=== PATIENT | male | born 1955 | race Hispanic/Latino ===

== ENCOUNTER → 2018-07-20 | Day surgery (SDC) | payer OTHER ==
[2018-07-17 15:56] LABS: BASOPHILS # (AUTO) 0.1 (0.0-0.1); BASOPHILS % 0.8 % (0.0-1.0); EOSINOPHILS # (AUTO) 0.3 (0.0-0.4); EOSINOPHILS % 3.1 % (0.0-6.0); HEMATOCRIT 49.7 % (38.2-49.6); HEMOGLOBIN 17.3 g/dL (14.0-18.0); LYMPHOCYTES # (AUTO) 2.7 (1.0-3.2); LYMPHOCYTES % 27.1 % (18.0-39.1); MEAN CORPUSCULAR HEMOGLOBIN 31.1 pg (28-32); MEAN CORPUSCULAR HGB CONC 34.8 g/dL (31-35); MEAN CORPUSCULAR VOLUME 89.2 fL (81-99); MONOCYTES # (AUTO) 0.7 (0.2-0.8); MONOCYTES % 6.7 % (4.4-11.3); NEUTROPHILS # (AUTO) 6.1 (2.1-6.9); PLATELET COUNT 182 x10e3/uL (140-360); RED BLOOD COUNT 5.57 x10e6/uL (4.3-5.7); RED CELL DISTRIBUTION WIDTH 11.7 % (11.7-14.4)
[2018-07-17 16:13] LABS: ALANINE AMINOTRANSFERASE 22 IU/L (0-55); ALBUMIN 4.1 g/dL (3.5-5.0); ALBUMIN/GLOBULIN RATIO 1.2 (0.8-2.0); ALKALINE PHOSPHATASE 84 IU/L (40-150); BLOOD UREA NITROGEN 17 mg/dL (7-26); BUN/CREATININE RATIO 18 (6-25); CALCIUM 9.6 mg/dL (8.4-10.2); CARBON DIOXIDE 26 mmol/L (22-29); CHLORIDE 101 mmol/L (98-107); CREATININE, SERUM 0.92 mg/dL (0.72-1.25); EST GLOMERULAR FILTRATION RATE > 60 ML/MIN (60-); GLUCOSE 104 mg/dL (74-118); SODIUM 137 mmol/L (136-145)
[~2018-07-20] VITALS: Ht 165.1 cm; Wt 69.4 kg
[2018-07-20] VITALS (15 sets, daily range): BP systolic 120–141; BP diastolic 54–86
[~2018-07-20] MED LIST: ATORVASTATIN CA10 MG PO; FENTANYL CITRATE/PF 100MCG/2 ML INJ ONE; FINASTERIDE5 MG PO; FLUTICASONE PRO16 GM; HEPARIN SOD/SOD CHLORIDE 2,000 ML ONE; IOPAMIDOL 370 MG/ML 200 ML INFUS..BTL INJ ONE; LIDOCAINE 1% W/EPINEPHRINE 20 ML VIAL ONE; LISINOPRIL-HCT1 EACH PO; MIDAZOLAM HCL 2 MG/2 ML VIAL ONE; NITROGLYCERIN/D5W 200 MCG/ML 250 ML ONE; OMEPRAZOLE40 MG PO; PROAIR HFA INH8.5 GM INH; SODIUM CHLORIDE 0.9% 1000ML 1,000 ML ONE; TAMSULOSIN HCL0.4 MG PO; TICAGRELOR 90 MG TABLET ONE; VERAPAMIL HCL 2.5 MG/ML 2 ML VIAL ONE
--- OUTSIDE RECORDS SUMMARY | 2018-07-20 13:46 | XMS REPORT | Continuity of Care Document ---
Author Author [facility] Interface Address Unknown Phone Unavailable Problems Problem Status Onset Date Classification Date Reported Comments Source R10.84 - GENERALIZED ABDOMINAL PAIN Active 12/20/2016 [facility] DX: H90.42=SENSORINEURAL HEARING LOSS, U Active 11/26/2016 [facility] UNK Active 08/23/2016 [facility] Discharge Diagnosis: Abdominal pain 02/12/2016 02/15/2016 [facility] LOWER ABDOMINAL PAIN Active 02/11/2016 [facility] Acid reflux Active Problem 02/13/2017 [facility] [place] HTN (<span [id number]">Confirmed</span>) Active Problem 02/13/2017 [facility] [place] Acute pain of right shoulder Active Problem 05/29/2018 [facility] Primary Acute non-recurrent frontal sinusitis Active Problem 05/29/2018 [facility] Cough Active Problem 05/29/2018 [facility] Primary Left ear pain Active Problem 05/29/2018 [facility] Primary Wears hearing aid Active Problem 05/29/2018 [facility] Primary Generalized abdominal pain Active Problem 05/29/2018 [facility] Primary Pain in left shoulder Active Problem 05/29/2018 [facility] Primary Environmental allergies Active Diagnosis 05/29/2018 [facility] Primary Onychomycosis Active Problem 05/29/2018 [facility] Primary Other chronic pain Active Problem 05/29/2018 [facility] Primary GERD Active Problem 05/29/2018 [facility] Primary Enlarged prostate with lower urinary tract symptoms Active Problem 05/29/2018 [facility] Primary Tobacco use disorder Active Problem 05/29/2018 [facility] Primary Abdominal pain Active Problem 05/29/2018 [facility] Primary Low vitamin D level Active Problem 05/29/2018 [facility] Primary Hematuria Active Problem 05/29/2018 [facility] Primary Hypertension Active Problem 05/29/2018 [facility] Primary Memory loss Active Problem 05/29/2018 [facility] Primary Hypokalemia Active Problem 05/29/2018 [facility] Primary Umbilical hernia without obstruction and without gangrene Active Problem 05/29/2018 [facility] Primary Fatty liver Active Problem 05/29/2018 [facility] Primary Calculus of left kidney Active Problem 05/29/2018 [facility] Primary Atherosclerosis Active Problem 05/29/2018 [facility] Primary Degenerative joint disease of low back Active Problem 05/29/2018 [facility] Primary Tobacco use disorder Active Problem 05/29/2018 [facility] Primary Left leg pain Active Problem 05/29/2018 [facility] Primary localized osteoarthrosis of right hip Active Problem 05/29/2018 [facility] Primary Prepatellar bursitis of right knee Active Problem 05/29/2018 [facility] Primary Elbow pain, left Active Problem 05/29/2018 [facility] Primary Shortness of breath Active Problem 05/29/2018 [facility] Primary Right elbow pain Active Problem 05/29/2018 [facility] Primary Essential hypertension Active Problem 05/29/2018 [facility] Primary Elbow pain, right Active Problem 05/29/2018 [facility] Primary M25.511 Active [facility] Medications Medication Details Route Status Patient Instructions Ordering Provider Order Date Source Naproxen 1 tablet with food or milk as needed Orally Active 500 mg Orally every 12 hrs as needed Jarad 05/28/2018 [facility] Fluticasone Propionate 1 spray in each nostril Nasally Active 50 MCG/ACT Nasally Once a day Jarad 04/30/2018 [facility] Naproxen 1 tablet with food or milk as needed Orally Active 500 mg Orally every 12 hrs Jarad 04/30/2018 [facility] ProAir HFA 2 puffs as needed Inhalation Active 108 (90 Base) MCG/ACT Inhalation every 6 hrs as needed Jarad 04/30/2018 [facility] Levocetirizine Dihydrochloride 1 tablet in the evening Orally Active 5 MG Orally Once a day Jarad 04/30/2018 [facility] Diclofenac Sodium 1 application to affected area Transdermal Active 3 % Transdermal Twice a day Jarad 04/30/2018 [facility] Bromfed DM 10 ml as needed Orally Active 30-2-10 MG/5ML Orally every 6 hrs as needed Jarad 04/30/2018 [facility] Meloxicam 1 tablet Orally Active 15 MG Orally Once a day Jarad 01/29/2018 [facility] Tamsulosin HCl 1 capsule Orally Active 0.4 MG Orally daily Jarad 10/13/2017 [facility] Finasteride 1 tablet Orally Active 5 MG Orally Once a day Jarad 10/13/2017 [facility] Meloxicam 1 tablet Orally Active 15 MG Orally Once a day Jarad 06/15/2017 [facility] Robaxin 1 tablet Orally Active 500 mg Orally three times a day (tid) as needed (prn) 05/16/2017 [facility] Ergocalciferol 1 capsule Orally Active 92517 UNIT Orally once a week 04/17/2017 [facility] Klor-Con 10 1 tablet with food Orally Active 10 MEQ Orally daily 01/15/2017 [facility] Atorvastatin Calcium 1 tablet Orally Active 10 MG Orally Once a day 01/13/2017 [facility] Ergocalciferol 1 capsule Orally Active 96449 UNIT Orally once a week 12/18/2016 [facility] Klor-Con M20 1 tablet with food Orally Active 20 MEQ Orally Once a day 12/18/2016 [facility] Amlodipine Besylate 1 tablet Orally Active 5 MG Orally Once a day 11/12/2016 [facility] Ciclopirox 1 drop to affected area Externally Active 8 % Externally Once a day 10/16/2016 [facility] Oxycodone Hydrochloride 5 MG Oral Tablet 10 mg, Route: PO, ONCE, Dosing Weight 65.085, kg, Start date: 09/16/16 9:45:00 [employer], Stop date: 09/16/16 9:45:00 [employer] Inactive 09/16/2016 [facility] Naloxone 0.4 mg, Route: IVP, Q2MIN, Dosing Weight 65.085, kg, PRN Narcotic Reversal, Start date: 09/16/16 8:50:00 [employer], Duration: 8 doses or times, Stop date: Limited # of times Inactive 09/16/2016 [facility] Diphenhydramine 12.5 mg, Route: IVP, Drug form: INJ, Q6H, Dosing Weight 65.085, kg, PRN Itching, Start date: 09/16/16 8:50:00 [employer], Duration: 30 day, Stop date: 10/16/16 8:49:00 CDT Inactive 09/16/2016 [facility] Albuterol 0.83 MG/ML Inhalant Solution 2.49 mg, Route: NEB, Q20Min, Dosing Weight 65.085, kg, PRN Wheezing, Priority: STAT, Start date: 09/16/16 8:50:00 [employer], Duration: 30 day, Stop date: 10/16/16 9:49:00 CDT Inactive 09/16/2016 [facility] Meperidine 12.5 mg, Route: IVP, Q30Min, Dosing Weight 65.085, kg, PRN Other -See Comment, For shivering, Start date: 09/16/16 8:50:00 [employer], Duration: 2 doses or times, Stop date: Limited # of times Inactive 09/16/2016 [facility] Hydromorphone 0.5 mg, Route: IVP, Q5Min, Dosing Weight 65.085, kg, PRN Pain Score 7-10, Start date: 09/16/16 8:50:00 [employer], Duration: 4 doses or times, Stop date: Limited # of times Inactive 09/16/2016 [facility] Flumazenil 0.2 mg, Route: IVP, PRN, Dosing Weight 65.085, kg, PRN Benzodiazepine Reversal, Initial dose, Start date: 09/16/16 8:50:00 [employer], Duration: 30 day, Stop date: 10/16/16 9:49:00 CDT Inactive 09/16/2016 [facility] Promethazine 6.25 mg, Route: IVPB, ONCE, Dosing Weight 65.085, kg, PRN Nausea & Vomiting, Start date: 09/16/16 8:50:00 [employer] Inactive 09/16/2016 [facility] Ondansetron 4 mg, Route: IVP, ONCE, Dosing Weight 65.085, kg, PRN Nausea & Vomiting, Start date: 09/16/16 8:50:00 [employer] Inactive 09/16/2016 [facility] Acetaminophen 1,000 mg, Route: IVPB, Drug form: INJ, ONCE, Dosing Weight 65.085, kg, PRN Pain Score 1-3, Start date: 09/16/16 8:50:00 [employer], Duration: 1 doses or times, Stop date: Limited # of times Inactive 09/16/2016 [facility] Labetalol 10 mg, Route: IVP, Q5Min, Dosing Weight 65.085, kg, PRN Elevated BP, Start date: 09/16/16 8:50:00 [employer], Duration: 5 doses or times, Stop date: Limited # of times Inactive 09/16/2016 [facility] Oxycodone 5 mg, Route: PO, Drug form: TAB, Q4H, Dosing Weight 65.085, kg, PRN Pain Score 4-6, Start date: 09/16/16 8:50:00 [employer], Duration: 30 day, Stop date: 10/16/16 8:49:00 CDT Inactive 09/16/2016 [facility] Sodium Chloride 0.154 MEQ/ML Injectable Solution 500 mL, Rate: 25 ml/hr, Infuse over: 20 hr, Route: IV, Dosing Weight 65.085 kg, Total Volume: 500, Start date: 09/16/16 8:50:00 [employer], Duration: 30 day, Stop date: 10/16/16 8:49:00 CDT Inactive 09/16/2016 [facility] Calcium Chloride 0.0014 MEQ/ML / Potassium Chloride 0.004 MEQ/ML / Sodium Chloride 0.103 MEQ/ML / Sodium Lactate 0.028 MEQ/ML Injectable Solution 1,000 mL, Rate: 125 ml/hr, Infuse over: 8 hr, Route: IV, Dosing Weight 65.085 kg, Total Volume: 1,000, Start date: 09/16/16 8:50:00 [employer], Duration: 30 day, Stop date: 10/16/16 8:49:00 CDT Inactive 09/16/2016 [facility] Hydralazine 10 mg, Route: IVP, Q20Min, Dosing Weight 65.085, kg, PRN Elevated BP, Start date: 09/16/16 8:50:00 [employer], Duration: 2 doses or times, Stop date: Limited # of times Inactive 09/16/2016 [facility] esmolol 10 mg, Route: IVP, Q5Min, Dosing Weight 65.085, kg, PRN Other -See Comment, Start date: 09/16/16 8:50:00 [employer], Duration: 5 doses or times, Stop date: Limited # of times Inactive 09/16/2016 [facility] neostigmine (ANES) Route: IV, Drug form: INJ, ONCE, Stop date: 09/16/16 8:47:00 [employer] Inactive 09/16/2016 [facility] glycopyrrolate (ANES) Route: IV, Drug form: INJ, ONCE, Stop date: 09/16/16 8:47:00 [employer] Inactive 09/16/2016 [facility] Docusate Sodium 100 MG Oral Capsule [Colace] 100 mg=1 cap, PO, BID, PRN Constipation, # 20 cap, 0 Refill(s), Pharmacy: [facility]/pharmacy #6000 Active 09/16/2016 [facility] Acetaminophen 300 MG / Codeine Phosphate 30 MG Oral Tablet [Tylenol with Codeine #3] 1 tab, PO, Q6H, PRN pain, X 7 day, # 28 tab, 0 Refill(s) Active 09/16/2016 [facility] ropivacaine Dosing: Per Nerve Block Dosing Order, Route: NERVE BLOCK, Start date: 09/16/16 8:34:00 [employer] 400 mL, Dosing Weight 65.085, kg, Duration: 30 day, Stop date: 10/16/16 9:33:00 CDT Inactive 09/16/2016 [facility] dexamethasone (ANES) Route: IV, Drug form: INJ, ONCE, Stop date: 09/16/16 8:31:00 [employer] Inactive 09/16/2016 [facility] ondansetron (ANES) Route: IV, Drug form: INJ, ONCE, Stop date: 09/16/16 8:31:00 [employer] Inactive 09/16/2016 [facility] succinylcholine (ANES) Route: IV, Drug form: INJ, ONCE, Stop date: 09/16/16 8:26:00 [employer] MANAGER Inactive 09/16/2016 [facility] propofol (ANES) Route: IV, Drug form: INJ, ONCE, Stop date: 09/16/16 8:26:00 [employer]NAGER Inactive 09/16/2016 [facility] fentaNYL (ANES) Route: IV, Drug form: INJ, ONCE, Stop date: 09/16/16 8:26:00 [employer] MA[employer]GER Inactive 09/16/2016 [facility] lidocaine (ANES) Route: IV, Drug form: INJ, ONCE, Stop date: 09/16/16 8:26:00 [employer]GER Inactive 09/16/2016 [facility] midazolam (ANES) Route: IV, Drug form: SOLN, ONCE, Stop date: 09/16/16 8:26:00 [employer]GER Inactive 09/16/2016 [facility] acetaminophen (ANES) Route: IV, Drug form: INJ, ONCE, Stop date: 09/16/16 8:26:00 [employer] MANAGER Inactive 09/16/2016 [facility] ceFAZolin (ANES) Route: IV, Drug form: INJ, ONCE, Stop date: 09/16/16 8:26:00 [employer] MANAGER Inactive 09/16/2016 [facility] rocuronium (ANES) Route: IV, Drug form: INJ, ONCE, Stop date: 09/16/16 8:21:00 [employer] MANAGER Inactive 09/16/2016 [facility] LR 1000 mL INJ (ANES) Route: IV, Total Volume: 1,000, Start date: 09/16/16 7:50:00 [employer] MANAGER, Stop date: 09/16/16 8:50:00 [employer]AL [employer] MANAGER Inactive 09/16/2016 [facility] Albuterol 0.833 MG/ML / Ipratropium [place] 0.167 MG/ML Inhalant Solution 3 mL, Route: NEB, Dosing Weight 65.085, kg, ONCE, STAT, Start date: 09/16/16 7:11:00 [employer] MANAGER, Stop date: 09/16/16 7:11:00 [employer]AL [employer] MANAGER Inactive 09/16/2016 [facility] Calcium Chloride 0.0014 MEQ/ML / Potassium Chloride 0.004 MEQ/ML / Sodium Chloride 0.103 MEQ/ML / Sodium Lactate 0.028 MEQ/ML Injectable Solution 1,000 mL, Rate: 25 ml/hr, Infuse over: 40 hr, Route: IV, Dosing Weight 65.085 kg, Total Volume: 1,000, Start date: 09/16/16 7:11:00 [employer] MA[employer]GER, Duration: 30 day, Stop date: 10/16/16 7:10:00 CDT Inactive 09/16/2016 [facility] Sodium Chloride 0.154 MEQ/ML Injectable Solution 500 mL, Rate: 25 ml/hr, Infuse over: 20 hr, Route: IV, Dosing Weight 65.085 kg, Total Volume: 500, Start date: 09/16/16 7:11:00 [employer]NAGER, Duration: 30 day, Stop date: 10/16/16 7:10:00 CDT Inactive 09/16/2016 [facility] Bupropion 150 mg, PO, Daily, 0 Refill(s) Active 09/12/2016 [facility] Meloxicam 1 tablet Orally Active 15 MG Orally Once a day Jarad09/12/2016 [facility] Diclofenac Sodium as directed Transdermal Active 1 % Transdermal Twice a day 09/12/2016 [facility] Levocetirizine Dihydrochloride 1 tablet in the evening Orally Active 5 MG Orally Once a day 09/12/2016 [facility] Ergocalciferol 1 capsule Orally Active 80576 UNIT Orally Once a week [facility] 05/23/2016 [facility] Amoxicillin-Pot Clavulanate as directed Orally Active 500-125 MG Orally every 12 hrs [facility] 05/22/2016 [facility] Benzonatate 1 capsule as needed Orally Active 100 MG Orally Three times a day as needed [facility] 05/22/2016 [facility] Levocetirizine Dihydrochloride 1 tablet in the evening Orally Active 5 MG Orally Once a day [facility] 05/22/2016 [facility] Fluticasone Propionate 1 spray in each nostril Nasally Active 50 MCG/ACT Nasally Once a day [facility] 05/22/2016 [facility] BuPROPion HCl (SR) 1 tablet Orally Active 150 MG Orally Twice a day [facility] 03/19/2016 [facility] Potassium Chloride 1 tablet with food Orally Active 10 MEQ Orally Twice a day [facility] 03/01/2016 [facility] Ergocalciferol 1 capsule Orally Active 79165 UNIT Orally Once a week [facility] 03/01/2016 [facility] tramadol hydrochloride 50 MG Oral Tablet [Ultram] 50 mg=1 tab, PO, Q6H, PRN pain, X 3 day, # 12 tab, 0 Refill(s) Active 02/12/2016 [facility] Saline Flush 0.9% 10 mL, Route: IVP, Drug Form: INJ, kg, PRN, PRN Line Flush, Start date: 02/11/16 21:54:00 CDT, Duration: 30 day, Stop date: 03/12/16 21:53:00 CDTNotes: (Same as: Posiflush) No Longer Active 02/12/2016 [facility] Tamsulosin HCl 1 capsule Orally Active 0.4 MG Orally daily [facility] Meloxicam 1 tablet Orally Active 15 MG Orally Once a day [facility] Omeprazole 1 capsule Orally Active 20 MG Orally daily [facility] Lisinopril-Hydrochlorothiazide 2 tablet Orally Active 20-12.5 MG Orally Once a day [facility] Amlodipine Besylate 1 tablet Orally Active 10 MG Orally Once a day [facility] Fluticasone Propionate 1 spray in each nostril Nasally Active 50 MCG/ACT Nasally Once a day [facility] Levocetirizine Dihydrochloride 1 tablet in the evening Orally Active 5 MG Orally Once a day [facility] BuPROPion HCl (SR) 1 tablet Orally Active 150 MG Orally Twice a day [facility] Robaxin 1 tablet Orally Active 500 MG Orally as needed (prn) [facility] Finasteride 1 tablet Orally Active 5 MG Orally Once a day [facility] Ranitidine 1 tablet Oral Active 75 mg Oral twice a day (bid) [facility] Ciclopirox 1 drop to affected area Externally Active 8 % Externally Once a day [facility] Ergocalciferol 1 capsule Orally Active 92750 UNIT Orally Once a week [facility] Lisinopril-Hydrochlorothiazide 2 tablet Orally Active 20-12.5 MG Orally Once a day [facility] Klor-Con 10 1 tablet with food Orally Active 10 MEQ Orally daily [facility] Levocetirizine Dihydrochloride 1 tablet in the evening Orally Active 5 MG Orally Once a day [facility] Ciclopirox 1 drop to affected area Externally Active 8 % Externally Once a day [facility] Fluticasone Propionate 1 spray in each nostril Nasally Active 50 MCG/ACT Nasally Once a day [facility] Ranitidine 1 tablet Oral Active 75 mg Oral twice a day (bid) [facility] BuPROPion HCl (SR) 1 tablet Orally Active 150 MG Orally Twice a day [facility] BuPROPion HCl (SR) TAKE 1 TABLET BY MOUTH TWICE A DAY NA Active 150 MG [facility] Omeprazole 1 capsule Orally Active 20 MG Orally daily [facility] Amlodipine Besylate 1 tablet Orally Active 10 MG Orally Once a day [facility] Atorvastatin Calcium 1 tablet Orally Active 10 MG Orally Once a day [facility] Fluticasone Propionate 1 spray in each nostril Nasally Active 50 MCG/ACT Nasally Once a day [facility] Amlodipine Besylate TAKE 1 TABLET BY MOUTH ONCE A DAY NA Active 10 mg [facility] Finasteride 1 tablet Orally Active 5 MG Orally daily [facility] Levocetirizine Dihydrochloride 1 tablet in the evening Orally Active 5 MG Orally Once a day [facility] Tamsulosin HCl 1 capsule Orally Active 0.4 MG Orally daily [facility] Allergies, Adverse Reactions, Alerts Substance Category Reaction Severity Reaction type Status Date Reported Comments Source N.K.D.A. Adverse Reaction Info Not Available Adverse Reaction Active 05/28/2018 [facility] Primary Immunizations Immunization Date Given Site Status Last Updated Comments Source Results Order Name Results Value Reference Range Date Interpretation Comments Source Internal Auditory Canal w contrast CT Internal Auditory Canal w contrast CT CT temporal bones with intravenous contrast 02/10/2017 10:41 AM CDT Clinical: Bilateral hearing loss, ear pain. Comparison: No prior exam. Technique: Axial images were obtained. Sagittal and coronal MPR images are also submitted. The DLP is 330 mGy*cm. This exam was performed according to our department dose optimization protocol, which includes automated exposure control, adjustment of the mA and/or kV according to patient size and/or use of iterative reconstruction technique. 75 mL of Omnipaque 300 given intravenously. Findings: Right temporal bone: Well aerated right mastoid air cells. Small volume of debris is present within the right external auditory canal. Mild medial retraction of the right tympanic membrane is present. The right middle ear cavity is well aerated. The right ossicular chain appears unremarkable. The right otic labyrinth appears unremarkable. No dehiscence of the right superior semicircular canal is seen. The right internal auditory canal and carotid canal appear unremarkable. Left temporal bone: Left mastoidectomy is present. No significant residual fluid is seen within the mastoid operative bed. The left tympanic membrane is retracted medially. Small left ossicular chain is present. Small volume of soft tissue is seen within the left epitympanum. The left cochlea and otic labyrinth appear unremarkable. 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 The left internal auditory canal and carotid canal appear intact. Left pterional craniotomy is present. Left globe anterior chamber foreign body is noted. Impression: 1. Right external auditory canal small volume debris material. Nonspecific mild retraction of the right tympanic membrane. 2. Left mastoidectomy. Small volume left epitympanic soft tissue. 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 3. Left anterior globe surgical foreign body. Please see additional comments above. 02/10/2017 - - Read by: Mac Arevalo MD Dictated Date/time: 02/10/17 16:09 Electronically Signed by: Mac Arevalo MD 02/10/17 16:25 FINAL REPORT YUM[facility] Abdomen/Pelvis w/wo IV contrast CT Abdomen/Pelvis w/wo IV contrast CT Patient Name: MINNIE LUCIO : 1955; Age: 61 years y/o Male MR: [id number] * I. COMPUTED TOMOGRAPHY SCAN OF THE ABDOMEN with and without contrast. * II. COMPUTED TOMOGRAPHY SCAN OF THE PELVIS with and without contrast HISTORY: Utilized nonspecific abdominal pain. COMPARISON: 02/12/2016. * TECHNIQUE: I. COMPUTED TOMOGRAPHY SCAN OF THE ABDOMEN with and without contrast: Helical CT images were obtained on a multidetector computed tomography from the domes the diaphragms to the iliac crests prior to and following the intravenous administration of nonionic iodinated contrast. Oral contrast was also provided. II. COMPUTED TOMOGRAPHY SCAN OF THE PELVIS with and without contrast: Helical CT images were obtained on a multidetector computed tomography from the iliac crests to the pubic symphysis prior to and following the intravenous administration of nonionic iodinated contrast. Oral contrast was also provided. Coronal and sagittal reconstructions were obtained. CT radiation dose DLP: 816 mGy-cm FINDINGS: There is no evidence of an acute intra-abdominal process. There is no free intraperitoneal gas, intra-abdominal abscess, focal inflammation, or bowel obstruction. There are postcholecystectomy changes. Surgical clips are noted in the right upper quadrant. There are mild diffuse fatty change involving the liver. The liver is otherwise unremarkable. No focal lesions are seen. The spleen, pancreas, and adrenal glands are normal in appearance. The kidneys are normal in size and show good, symmetrical excretion without hydronephrosis. There is a 3 mm left upper pole renal calculus which is stable. No other urinary tract calculi are seen. There are a few renal cysts bilaterally. The largest cyst measures 12 mm in the left mid polar region. There is also an 8 mm cyst in the upper pole. A few other tiny cysts are noted bilaterally. No other focal renal lesions are seen. The gastrointestinal structures are unremarkable. There is no evidence of obstruction or ileus. A normal appendix is visualized. There is no evidence of appendicitis. No mass or adenopathy is seen within the abdomen or pelvis. There is no ascites or other fluid collection. There are extensive atherosclerotic calcifications involving the abdominal aorta. The aorta is normal in caliber. The visualized lung bases are clear. There are no pleural effusions. The heart is normal in size. There is no pericardial effusion. There are very mild right coronary artery calcifications. There is mild degenerative disc disease at L5-S1. The osseous structures are otherwise unremarkable. No blastic or destructive lesions are seen. IMPRESSION: 1. No evidence of an acute or significant focal intra-abdominal process. 2. Status post cholecystectomy. 3. Mild diffuse fatty changes involving the liver. 4. Tiny left upper pole renal calculus. Also noted are a few small/tiny renal cysts. 5. Atherosclerosis. 6. Mild degenerative disc disease at L5-S1. SL: [id number] 12/27/2016 - - Read by: Geremias De Oliveira MD Dictated Date/time: 12/27/16 16:38 Electronically Signed by: Geremias De Oliveira MD 12/27/16 16:46 FINAL REPORT [facility] CHEM PANEL B/C Ratio 17 6 - 25 09/12/2016 [facility] CHEM PANEL A/G Ratio 1.1 0.7 - 1.6 09/12/2016 [facility] CHEM PANEL Globulin 3.2 g/dL 2.7 - 4.2 09/12/2016 [facility] CHEM PANEL AGAP 11.2 meq/L 10.0 - 20.0 09/12/2016 [facility] CHEM PANEL eGFR 98 mL/min/1.73m2 09/12/2016 Result Comment: The eGFR is calculated using the CKD-EPI formula. In most young, healthy individuals the eGFR will be >90 mL/min/1.73m2. The eGFR declines with age. An eGFR of 60-89 may be normal in some populations, particularly the elderly, for whom the CKD-EPI formula has not been extensively validated. Use of the eGFR is not recommended in the following populations: Individuals with unstable creatinine concentrations, including patients and those with serious co-morbid conditions. Patients with extremes in muscle mass or diet. The data above are obtained from the National Kidney Disease Education Program (NKDEP) which additionally recommends that when the eGFR is used in patients with extremes of body mass index for purposes of drug dosing, the eGFR should be multiplied by the estimated BMI. [facility] CHEM PANEL AST 16 unit/L 0 - 37 09/12/2016 [facility] CHEM PANEL Bili Total 0.4 mg/dL 0.2 - 1.3 09/12/2016 [facility] CHEM PANEL Alk Phos 99 unit/L 39 - 136 09/12/2016 [facility] CHEM PANEL ALT 26 unit/L 0 - 65 09/12/2016 [facility] CHEM PANEL Albumin Lvl 3.6 g/dL 3.5 - 5.0 09/12/2016 [facility] CHEM PANEL Total Protein 6.8 g/dL 6.4 - 8.4 09/12/2016 [facility] CHEM PANEL Calcium Lvl 8.5 mg/dL 8.5 - 10.5 09/12/2016 [facility] CHEM PANEL CO2 28 meq/L 24 - 32 09/12/2016 [facility] CHEM PANEL Chloride Lvl 104 meq/L 95 - 109 09/12/2016 [facility] CHEM PANEL Potassium Lvl 3.2 meq/L 3.5 - 5.1 09/12/2016 [facility] CHEM PANEL Sodium Lvl 140 meq/L 135 - 145 09/12/2016 [facility] CHEM PANEL Creatinine Lvl 0.78 mg/dL 0.50 - 1.40 09/12/2016 [facility] CHEM PANEL BUN 13 mg/dL 7 - 22 09/12/2016 [facility] CHEM PANEL Glucose Lvl 92 mg/dL 70 - 99 09/12/2016 [facility] HEMATOLOGY Platelet 194 K/CMM 133 - 450 09/12/2016 [facility] HEMATOLOGY MCV 88.9 fL 80.0 - 94.0 09/12/2016 [facility] HEMATOLOGY MCH 31.3 pg 27.0 - 31.0 09/12/2016 [facility] HEMATOLOGY MPV 8.3 fL 7.4 - 10.4 09/12/2016 [facility] HEMATOLOGY WBC 9.0 K/CMM 3.7 - 10.4 09/12/2016 [facility] HEMATOLOGY RBC 5.13 M/CMM 4.70 - 6.10 09/12/2016 [facility] HEMATOLOGY Hgb 16.1 g/dL 14.0 - 18.0 09/12/2016 [facility] HEMATOLOGY Hct 45.6 % 42.0 - 54.0 09/12/2016 [facility] HEMATOLOGY MCHC 35.2 g/dL 32.0 - 36.0 09/12/2016 [facility] HEMATOLOGY RDW 13.3 % 11.5 - 14.5 09/12/2016 [facility] HEMATOLOGY Segs 58.3 % 45.0 - 75.0 09/12/2016 [facility] HEMATOLOGY Lymphocytes 29.6 % 20.0 - 40.0 09/12/2016 [facility] HEMATOLOGY Monocytes 9.1 % 2.0 - 12.0 09/12/2016 [facility] HEMATOLOGY Eosinophils 2.4 % 0.0 - 4.0 09/12/2016 [facility] Eosinophils # 0.2 K/CMM 0.0 - 0.5 09/12/2016 [facility] Basophils 0.6 % 0.0 - 1.0 09/12/2016 [facility] Segs-Bands # 5.2 K/CMM 1.5 - 8.1 09/12/2016 [facility] Lymphocytes # 2.7 K/CMM 1.0 - 5.5 09/12/2016 [facility] Monocytes # 0.8 K/CMM 0.0 - 0.8 09/12/2016 [facility] Basophils # 0.1 K/CMM 0.0 - 0.2 09/12/2016 [facility] Scapula 2 views DX Scapula 2 views DX Right scapula 2 views: There is no evidence of fracture or dislocation. There are no other significant osseous, articular or soft tissue abnormalities. IMPRESSION: No significant radiographic abnormalities of the right scapula. [id number] 05/22/2016 - - Read by: Leif Snow MD Dictated Date/time: 05/22/16 13:53 Electronically Signed by: Leif Snow MD 05/22/16 13:54 FINAL REPORT [facility] Shoulder series DX Shoulder series DX Right shoulder 3 views: There is no fracture or dislocation. There are no other significant osseous, articular or soft tissue abnormalities. IMPRESSION: No acute radiographic abnormality of the right shoulder. [id number] 05/22/2016 - - Read by: Leif Snow MD Dictated Date/time: 05/22/16 13:24 Electronically Signed by: Leif Snow MD 05/22/16 13:24 FINAL REPORT [facility] CHEM PANEL eGFR 81 mL/min/1.73m2 02/12/2016 Result Comment: The eGFR is calculated using the CKD-EPI formula. In most young, healthy individuals the eGFR will be >90 mL/min/1.73m2. The eGFR declines with age. An eGFR of 60-89 may be normal in some populations, particularly the elderly, for whom the CKD-EPI formula has not been extensively validated. Use of the eGFR is not recommended in the following populations: Individuals with unstable creatinine concentrations, including patients and those with serious co-morbid conditions. Patients with extremes in muscle mass or diet. The data above are obtained from the National Kidney Disease Education Program (NKDEP) which additionally recommends that when the eGFR is used in patients with extremes of body mass index for purposes of drug dosing, the eGFR should be multiplied by the estimated BMI. [facility] CHEM PANEL Alk Phos 88 unit/L 39 - 136 02/12/2016 [facility] CHEM PANEL Bili Total 0.7 mg/dL 0.2 - 1.3 02/12/2016 [facility] CHEM PANEL AST 17 unit/L 0 - 37 02/12/2016 [facility] CHEM PANEL Albumin Lvl 3.9 g/dL 3.5 - 5.0 02/12/2016 [facility] CHEM PANEL ALT 22 unit/L 0 - 65 02/12/2016 [facility] CHEM PANEL Sodium Lvl 140 meq/L 135 - 145 02/12/2016 [facility] CHEM PANEL Glucose Lvl 112 mg/dL 70 - 99 02/12/2016 [facility] CHEM PANEL Calcium Lvl 8.7 mg/dL 8.5 - 10.5 02/12/2016 [facility] CHEM PANEL CO2 27 meq/L 24 - 32 02/12/2016 [facility] CHEM PANEL Total Protein 7.8 g/dL 6.4 - 8.4 02/12/2016 [facility] CHEM PANEL Chloride Lvl 108 meq/L 95 - 109 02/12/2016 [facility] CHEM PANEL Potassium Lvl 3.7 meq/L 3.5 - 5.1 02/12/2016 [facility] CHEM PANEL Creatinine Lvl 1.01 mg/dL 0.50 - 1.40 02/12/2016 [facility] CHEM PANEL BUN 24 mg/dL 7 - 22 02/12/2016 [facility] CHEM PANEL A/G Ratio 1.0 0.7 - 1.6 02/12/2016 [facility] CHEM PANEL Globulin 3.9 g/dL 2.0 - 4.0 02/12/2016 [facility] CHEM PANEL AGAP 8.7 meq/L 10.0 - 20.0 02/12/2016 [facility] CHEM PANEL B/C Ratio 24 6 - 25 02/12/2016 [facility] HEMATOLOGY Basophils # 0.1 K/CMM 0.0 - 0.2 02/12/2016 [facility] HEMATOLOGY Eosinophils # 0.3 K/CMM 0.0 - 0.5 02/12/2016 [facility] HEMATOLOGY Monocytes # 0.9 K/CMM 0.0 - 0.8 02/12/2016 [facility] HEMATOLOGY Segs-Bands # 7.1 K/CMM 1.5 - 8.1 02/12/2016 [facility] HEMATOLOGY Lymphocytes # 2.9 K/CMM 1.0 - 5.5 02/12/2016 [facility] HEMATOLOGY Basophils 0.9 % 0.0 - 1.0 02/12/2016 [facility] HEMATOLOGY Segs 62.7 % 45.0 - 75.0 02/12/2016 [facility] HEMATOLOGY Eosinophils 2.7 % 0.0 - 4.0 02/12/2016 [facility] HEMATOLOGY Monocytes 7.9 % 2.0 - 12.0 02/12/2016 [facility] HEMATOLOGY Lymphocytes 25.8 % 20.0 - 40.0 02/12/2016 [facility] WBC 11.3 K/CMM 3.7 - 10.4 02/12/2016 [facility] RBC 5.71 M/CMM 4.70 - 6.10 02/12/2016 [facility] Hgb 17.4 g/dL 14.0 - 18.0 02/12/2016 [facility] Platelet 201 K/CMM 133 - 450 02/12/2016 [facility] MPV 8.3 fL 7.4 - 10.4 02/12/2016 [facility] MCV 89.6 fL 80.0 - 94.0 02/12/2016 [facility] Hct 51.1 % 42.0 - 54.0 02/12/2016 [facility] MCH 30.5 pg 27.0 - 31.0 02/12/2016 [facility] RDW 13.0 % 11.5 - 14.5 02/12/2016 [facility] MCHC 34.1 g/dL 32.0 - 36.0 02/12/2016 [facility] URINE AND STOOL UA Color Eli 02/12/2016 [facility] URINE AND STOOL UA RBC 21 /HPF 0 - 2 02/12/2016 [facility] URINE AND STOOL UA Mucus Many /LPF None Seen /LPF 02/12/2016 [facility] URINE AND STOOL UA CaOx Freda Occasional /HPF None Seen /HPF 02/12/2016 [facility] URINE AND STOOL UA Urobilinogen 2.0 mg/dL 0.1 - 1.0 02/12/2016 [facility] URINE AND STOOL UA Nitrite Negative (02/11/16 11:32 PM) Negative 02/12/2016 [facility] URINE AND STOOL UA Leuk Est Small *ABN* (02/11/16 11:32 PM) Negative 02/12/2016 [facility] URINE AND STOOL UA Sq Epi Occasional /LPF Few /LPF 02/12/2016 [facility] URINE AND STOOL UA WBC 1 /HPF 0 - 5 02/12/2016 [facility] URINE AND STOOL UA Glucose Negative mg/dL Negative mg/dL 02/12/2016 [facility] URINE AND STOOL UA Protein Negative mg/dL Negative mg/dL 02/12/2016 [facility] URINE AND STOOL UA Ketones Negative mg/dL Negative mg/dL 02/12/2016 [facility] URINE AND STOOL UA Bili Negative *NA* (02/11/16 11:32 PM) Negative 02/12/2016 [facility] URINE AND STOOL UA Blood Negative (02/11/16 11:32 PM) Negative 02/12/2016 [facility] URINE AND STOOL UA Turbidity Clear (02/11/16 11:32 PM) Clear 02/12/2016 [facility] URINE AND STOOL UA Spec Grav 1.031 <=1.030 02/12/2016 [facility] URINE AND STOOL UA pH 5.0 5.0 - 8.0 02/12/2016 [facility] ED Abdomen/Pelvis IV contrast only CT ED Abdomen/Pelvis IV contrast only CT Clinical Indication: Abdominal pain, acute; Comparison: 04/09/2006 TECHNIQUE: Helical imaging was performed diaphragm through the symphysis with multiplanar reformations obtained. IV CONTRAST: Yes GI CONTRAST: No DLP: 1186 mGy-cm FINDINGS: LOWER CHEST: The lung bases are clear. LIVER: Normal. BILIARY TREE: Normal. GALLBLADDER: Absent. PANCREAS: Normal. SPLEEN: Normal. ADRENALS: Normal. KIDNEYS: Normal. BOWEL: No bowel obstruction. No evidence for colitis, diverticulitis or appendicitis. APPENDIX: Normal. PERITONEUM: No free intraperitoneal fluid or air. RETROPERITONEUM: No adenopathy. The aorta is normal. PELVIS: No pelvic mass. The urinary bladder is normal. MUSCULOSKELETAL: The skeleton is intact. 3 cm umbilical hernia containing only fat. IMPRESSION: No acute finding. SL: KAYLIE-ANETTE 02/12/2016 - - Read by: Dex Maldonado MD Dictated Date/time: 02/12/16 02:21 Electronically Signed by: Dex Maldonado MD 02/12/16 02:24 FINAL REPORT [facility] Vital Signs Vital Sign Value Date Comments Source Weight 149.5 05/28/2018 [place] [facility] Primary Height 66 05/28/2018 [facility] Primary Temperature Oral (F) 98.0 F 05/28/2018 [facility] Primary Heart Rate 64 05/28/2018 [place] [facility] Primary Diastolic (mm Hg) 71 05/28/2018 [facility] Primary Systolic (mm Hg) 133 05/28/2018 [facility] Primary Weight 147.1 04/30/2018 [facility] Primary Height 66 04/30/2018 [facility] Primary Temperature Oral (F) 97.7 F 04/30/2018 [facility] Primary Heart Rate 56 04/30/2018 [facility] Primary Diastolic (mm Hg) 76 04/30/2018 [facility] Primary Systolic (mm Hg) 134 04/30/2018 [facility] Primary Weight 147.3 01/29/2018 [facility] Primary Height 66 01/29/2018 [facility] Primary Temperature Oral (F) 98.0 F 01/29/2018 [facility] Primary Heart Rate 70 01/29/2018 [facility] Primary Diastolic (mm Hg) 77 01/29/2018 [facility] Primary Systolic (mm Hg) 123 01/29/2018 [facility] Primary Weight 149.1 04/16/2017 [facility] Primary Height 66 04/16/2017 [facility] Primary Temperature Oral (F) 98.3 F 04/16/2017 [facility] Primary Heart Rate 74 04/16/2017 [facility] Primary Diastolic (mm Hg) 78 04/16/2017 [facility] Primary Systolic (mm Hg) 132 04/16/2017 [facility] Primary Weight 144.8 01/13/2017 [facility] Primary Height 66 01/13/2017 [facility] Primary Temperature Oral (F) 98.1 F 01/13/2017 [facility] Primary Heart Rate 77 01/13/2017 [facility] Primary Diastolic (mm Hg) 68 01/13/2017 [facility] Primary Systolic (mm Hg) 111 01/13/2017 [facility] Primary Weight 144.9 12/12/2016 [facility] Primary Height 66 12/12/2016 [facility] Primary Temperature Oral (F) 97.3 F 12/12/2016 [facility] Primary Heart Rate 84 12/12/2016 [facility] Primary Diastolic (mm Hg) 88 12/12/2016 [facility] Primary Systolic (mm Hg) 165 12/12/2016 [facility] Primary Weight 148.4 11/12/2016 [facility] Primary Height 66 11/12/2016 [facility] Primary Heart Rate 60 11/12/2016 [facility] Primary Diastolic (mm Hg) 80 11/12/2016 [place] [facility] Primary Systolic (mm Hg) 155 11/12/2016 [facility] Primary Weight 147.8 10/16/2016 [place] [facility] Primary Height 66 10/16/2016 [facility] Primary Temperature Oral (F) 98.6 F 10/16/2016 [facility] Primary Heart Rate 69 10/16/2016 [facility] Primary Diastolic (mm Hg) 79 10/16/2016 [facility] Primary Systolic (mm Hg) 151 10/16/2016 [facility] Primary Systolic (mm Hg) 136 09/16/2016 [facility] Diastolic (mm Hg) 83 09/16/2016 [facility] Respitory Rate 15 09/16/2016 [facility] Systolic (mm Hg) 138 09/16/2016 [facility] Diastolic (mm Hg) 81 09/16/2016 [facility] Respitory Rate 14 09/16/2016 [facility] Respitory Rate 15 09/16/2016 [facility] Systolic (mm Hg) 136 09/16/2016 [facility] Diastolic (mm Hg) 77 09/16/2016 [facility] Heart Rate 59 09/12/2016 [facility] Temperature Oral (F) 97.6 F 09/12/2016 [facility] BMI Calculated 23.88 09/12/2016 [facility] Weight 65.085 09/12/2016 [facility] Height 165.1 cm 09/12/2016 [facility] Weight 145.8 09/12/2016 [facility] Primary Height 66 09/12/2016 [facility] Primary Temperature Oral (F) 98.5 F 09/12/2016 [facility] Primary Heart Rate 67 09/12/2016 [facility] Primary Diastolic (mm Hg) 84 09/12/2016 [facility] Primary Systolic (mm Hg) 153 09/12/2016 [facility] Primary Weight 147.5 08/12/2016 [facility] Primary Height 66 08/12/2016 [facility] Primary Temperature Oral (F) 97.9 F 08/12/2016 [facility] Primary Heart Rate 71 08/12/2016 [facility] Primary Diastolic (mm Hg) 85 08/12/2016 [facility] Primary Systolic (mm Hg) 152 08/12/2016 [facility] Primary Weight 139.6 05/22/2016 [facility] Primary Height 66 05/22/2016 [facility] Primary Temperature Oral (F) 98.3 F 05/22/2016 [facility] Primary Heart Rate 73 05/22/2016 [facility] Primary Diastolic (mm Hg) 75 05/22/2016 [facility] Primary Systolic (mm Hg) 133 05/22/2016 [facility] Primary Weight 141.8 04/19/2016 [facility] Primary Height 66 04/19/2016 [facility] Primary Temperature Oral (F) 98.1 F 04/19/2016 [facility] Primary Heart Rate 61 04/19/2016 [facility] Primary Diastolic (mm Hg) 79 04/19/2016 [facility] Primary Systolic (mm Hg) 136 04/19/2016 [facility] Primary Weight 143.1 03/19/2016 [facility] Primary Height 66 03/19/2016 [facility] Primary Temperature Oral (F) 97.9 F 03/19/2016 [facility] Primary Heart Rate 57 03/19/2016 [facility] Primary Diastolic (mm Hg) 77 03/19/2016 [facility] Primary Systolic (mm Hg) 125 03/19/2016 [facility] Primary Weight 141.1 02/27/2016 [facility] Primary Height 66 02/27/2016 [facility] Primary Temperature Oral (F) 98.2 F 02/27/2016 [facility] Primary Heart Rate 54 02/27/2016 [facility] Primary Diastolic (mm Hg) 74 02/27/2016 [facility] Primary Systolic (mm Hg) 126 02/27/2016 [facility] Primary Systolic (mm Hg) 114 02/12/2016 [facility] Diastolic (mm Hg) 61 02/12/2016 [facility] Respitory Rate 16 02/12/2016 [facility] Heart Rate 55 02/12/2016 [facility] Temperature Oral (F) 97.5 F 02/12/2016 [facility] Height 160.02 cm 02/12/2016 [facility] Weight 65.909 02/12/2016 [facility] BMI Calculated 25.74 02/12/2016 [facility] Respitory Rate 18 02/12/2016 [facility] Heart Rate 72 02/12/2016 [facility] Systolic (mm Hg) 122 02/12/2016 [facility] Diastolic (mm Hg) 75 02/12/2016 [facility] Temperature Oral (F) 98.3 F 02/12/2016 [facility] Encounters Location Location Details Encounter Type Encounter Number Reason For Visit Attending Provider ADM Date DC Date Status Source [facility] Outpatient Imaging - [facility] [id number] Maikol Garcia 08/15/2014 08/16/2014 YUMIKO COMER [facility] [id number] Cat Landa 02/12/2016 02/12/2016 [facility] Care Patient here for hospital follow up/abdominal pain [id number] 02/27/2016 02/27/2016 [facility] Primary Care Patient here for hospital follow up/abdominal pain [id number] 02/27/2016 02/27/2016 [facility] Primary Care Patient here for hospital follow up/abdominal pain [id number] 02/27/2016 02/27/2016 [facility] Primary Care Patient here for hospital follow up/abdominal pain [id number] 02/27/2016 02/27/2016 [facility] Primary Care Patient here for hospital follow up/abdominal pain [id number] 02/27/2016 02/27/2016 [facility] Primary Care Patient here for hospital follow up/abdominal pain [id number] 02/27/2016 02/27/2016 [facility] Primary Care Patient here for hospital follow up/abdominal pain [id number] 02/27/2016 02/27/2016 [facility] Primary Care Patient here for hospital follow up/abdominal pain [id number] 02/27/2016 02/27/2016 [facility] Primary Care Unknown [id number] 03/01/2016 03/01/2016 [facility] Primary Care Unknown [id number] 03/01/2016 03/01/2016 [facility] Primary Care Unknown [id number] 03/01/2016 03/01/2016 [facility] Primary Care Unknown [id number] 03/01/2016 03/01/2016 [facility] Primary Care Unknown [id number] 03/01/2016 03/01/2016 [facility] Primary Care Unknown [id number] 03/01/2016 03/01/2016 [facility] Primary Care Unknown [id number] 03/01/2016 03/01/2016 [facility] Primary Care Patient here for follow up [id number] 03/19/2016 03/19/2016 [facility] Primary Care Patient here for follow up [id number] 03/19/2016 03/19/2016 [facility] Primary Care Patient here for follow up [id number] 03/19/2016 03/19/2016 [facility] Primary Care Patient here for follow up [id number] 03/19/2016 03/19/2016 [facility] Primary Care Patient here for follow up [id number] 03/19/2016 03/19/2016 [facility] Primary Care Patient here for follow up [id number] 03/19/2016 03/19/2016 [facility] Primary Care patient here to follow up on medication [id number] 04/19/2016 04/19/2016 [facility] Primary Care patient here to follow up on medication [id number] 04/19/2016 04/19/2016 [facility] Primary Care patient here to follow up on medication [id number] 04/19/2016 04/19/2016 [facility] Primary Care patient here to follow up on medication [id number] 04/19/2016 04/19/2016 [facility] Primary Care patient here to follow up on medication [id number] 04/19/2016 04/19/2016 [facility] Primary Care patient here for follow up [id number] 05/22/2016 05/22/2016 [facility] Primary Care patient here for follow up [id number] 05/22/2016 05/22/2016 [facility] Primary Care patient here for follow up [id number] 05/22/2016 05/22/2016 [facility] Primary Care patient here for follow up [id number] 05/22/2016 05/22/2016 [facility] Outpatient [id number] Larisa Abraham 05/22/2016 05/23/2016 [facility] Care Unknown [id number] 05/23/2016 05/23/2016 [facility] Primary Care Unknown [id number] 05/23/2016 05/23/2016 [facility] Primary Care Unknown [id number] 05/23/2016 05/23/2016 [facility] Primary Care patient here for a follow up [id number] 08/12/2016 08/12/2016 [facility] Primary [facility] Primary Care patient here for a follow up [id number] 08/12/2016 08/12/2016 [facility] Primary Outpatient [id number] [facility] 08/23/2016 [facility] Outpatient [id number] [facility] 09/09/2016 [facility] Primary Care patient here for a follow up on blood pressure [id number] 09/12/2016 09/12/2016 [facility] Primary Outpatient [id number] [facility] 09/13/2016 [facility]patient [id number] [facility] 09/16/2016 [facility] Day Surgery [id number] Hess Le 09/16/2016 09/16/2016 [facility] Outpatient [id number] [facility] 09/26/2016 [facility] Outpatient [id number] Juan Reece 11/29/2016 11/29/2016 [facility] Outpatient [id number] Larisa Jarad 12/27/2016 12/28/2016 [facility] [place] [facility] [id number] Carter Onofre 02/10/2017 02/11/2017 [facility] Procedures Procedure Code Date Perfomer Comments Source Partial omentectomy [id number] 09/16/2016 [facility] [id number] 09/16/2016 [facility] Partial omentectomy [id number] 09/16/2016 [facility] [place] Repair of umbilical hernia [id number] 09/16/2016 [facility] Cholecystectomy [id number] [facility] Debridement of sacral pressure ulcer [id number] [facility] Lipoma [id number] [facility] Cholecystectomy [id number] [facility] [place] Debridement of sacral pressure ulcer [id number] [facility] [place] Lipoma [id number] [facility] [place]
--- NOTE | 2018-07-21 15:49 | Operative Report ---
DATE OF PROCEDURE: July 20, 2019 INDICATIONS: Coronary artery disease, unstable angina, abnormal stress test. PROCEDURES PERFORMED 1. Left heart catheterization, selective coronary angiography. 2. Percutaneous transluminal coronary angioplasty and drug-eluting stent placement to the obtuse marginal branch of the left circumflex artery. 3. Deployment of right wrist transradial band. COMPLICATIONS: None. RECOMMENDATIONS: Dual-antiplatelet therapy for 6 months. Access obtained in the right radial artery. A 6-Syrian sheath was placed. Left main was cannulated using a JCL4, 6-Syrian guiding catheter. A 95% stenosis of the proximal first obtuse marginal branch of the circumflex artery was noted. The lesion was crossed using a run through wire. Pre-dilatation with a 1.5 mm balloon following which a single 2.0 x 15 mm Resolute [place] stent was deployed at 14 atmospheres. Excellent end result, less than 10% residual stenosis. CINDA-3 flow. No complications. Wire and guide sheath removed. TR band applied. Patient discharged home same day. Job#: [id number] LAURA
== END | disposition home or self-care (01) ==
LOC: CATH LAB 13:38
PROVIDERS: ATTEND Internal Medicine Interventional Cardiology
DX: I25.110 Atherosclerotic heart disease of native coronary artery with unstable angina pectoris (principal); R94.39 Abnormal result of other cardiovascular function study; I10 Essential (primary) hypertension; Z01.812 Encounter for preprocedural laboratory examination; Z82.49 Family history of ischemic heart disease and other diseases of the circulatory system
CPT/HCPCS: 92928; 93454; C1874; 36415; 80053; 82948; 85025; 92920; C1769; J2250; J7030; Q9967

== ENCOUNTER 2018-10-30 12:38 | Observation (INO) | payer OTHER ==
--- NOTE | 2018-10-29 13:05 | NUR ---
Patient brought to [facility] for preop appointment. Patient ambulated with steady gait. Patient awake, alert, and orientedx3. Respirations even and unlabored on room air. Used [facility] [place] [id number] via video to review medical history, medications, preoperative instructions, and consent paperwork. Patient verbalized understanding and had no questions at this time.
[2018-10-29 14:11] LABS: BASOPHILS # (AUTO) 0.1 (0.0-0.1); BASOPHILS % 0.6 % (0.0-1.0); EOSINOPHILS # (AUTO) 0.3 (0.0-0.4); EOSINOPHILS % 2.7 % (0.0-6.0); HEMATOCRIT 43.9 % (38.2-49.6); HEMOGLOBIN 15.7 g/dL (14.0-18.0); LYMPHOCYTES % 26.4 % (18.0-39.1); MEAN CORPUSCULAR HEMOGLOBIN 31.1 pg (28-32); MEAN CORPUSCULAR HGB CONC 35.8 g/dL (31-35); MEAN CORPUSCULAR VOLUME 86.9 fL (81-99); MONOCYTES # (AUTO) 0.7 (0.2-0.8); MONOCYTES % 6.4 % (4.4-11.3); NEUTROPHILS # (AUTO) 7.2 (2.1-6.9); NEUTROPHILS % 63.6 % (38.7-80.0); PLATELET COUNT 195 x10e3/uL (140-360); RED BLOOD COUNT 5.05 x10e6/uL (4.3-5.7); RED CELL DISTRIBUTION WIDTH 12.5 % (11.7-14.4)
[2018-10-29 14:34] LABS: ALANINE AMINOTRANSFERASE 21 IU/L (0-55); ALBUMIN/GLOBULIN RATIO 1.3 (0.8-2.0); ALKALINE PHOSPHATASE 89 IU/L (40-150); ANION GAP 11.3 mmol/L (8-16); BLOOD UREA NITROGEN 14 mg/dL (7-26); BUN/CREATININE RATIO 19 (6-25); CALCIUM 9.3 mg/dL (8.4-10.2); CARBON DIOXIDE 26 mmol/L (22-29); CHLORIDE 105 mmol/L (98-107); CREATININE, SERUM 0.74 mg/dL (0.72-1.25); EST GLOMERULAR FILTRATION RATE > 60 ML/MIN (60-); GLUCOSE 91 mg/dL (74-118); POTASSIUM 3.3 mmol/L (3.5-5.1); SODIUM 139 mmol/L (136-145)
[~2018-10-30] VITALS: Ht 165.1 cm; Wt 68.0 kg
[~2018-10-30 12:38] MED LIST changes: +ASPIRIN325 MG PO; +BRILINTA90 MG PO; -FENTANYL CITRATE/PF 100MCG/2 ML INJ ONE; -HEPARIN SOD/SOD CHLORIDE 2,000 ML ONE; -IOPAMIDOL 370 MG/ML 200 ML INFUS..BTL INJ ONE; +LEVOCETIRIZINE D5 MG PO; -LIDOCAINE 1% W/EPINEPHRINE 20 ML VIAL ONE; -MIDAZOLAM HCL 2 MG/2 ML VIAL ONE; -NITROGLYCERIN/D5W 200 MCG/ML 250 ML ONE; -SODIUM CHLORIDE 0.9% 1000ML 1,000 ML ONE; -TICAGRELOR 90 MG TABLET ONE; -VERAPAMIL HCL 2.5 MG/ML 2 ML VIAL ONE
--- OUTSIDE RECORDS SUMMARY | 2018-10-30 12:41 | XMS REPORT | Continuity of Care Document ---
Author Author [facility] Interface Address Unknown Phone Unavailable Problems Problem Status Onset Date Classification Date Reported Comments Source Memory loss Active Problem 10/01/2018 [facility] Environmental allergies Active Problem 10/01/2018 [facility] Umbilical hernia without obstruction and without gangrene Active Problem 10/01/2018 [facility] Enlarged prostate with lower urinary tract symptoms Active Problem 10/01/2018 [facility] Acute pain of right shoulder Active Problem 10/01/2018 [facility] Acute non-recurrent frontal sinusitis Active Problem 10/01/2018 [facility] Cough Active Problem 10/01/2018 [facility] Left ear pain Active Problem 10/01/2018 [facility] Wears hearing aid Active Problem 10/01/2018 [facility] Hypertension Active Problem 10/01/2018 [facility] Generalized abdominal pain Active Problem 10/01/2018 [facility] GERD Active Problem 10/01/2018 [facility] Pain in left shoulder Active Problem 10/01/2018 [facility] Onychomycosis Active Problem 10/01/2018 [facility] Other chronic pain Active Problem 10/01/2018 [facility] Tobacco use disorder Active Problem 10/01/2018 [facility] Abdominal pain Active Problem 10/01/2018 [facility] Low vitamin D level Active Problem 10/01/2018 [facility] Hematuria Active Problem 10/01/2018 [facility] Hypokalemia Active Problem 10/01/2018 [facility] Degenerative joint disease of low back Active Problem 10/01/2018 [facility] Fatty liver Active Problem 10/01/2018 [facility] Atherosclerosis Active Problem 10/01/2018 [facility] Calculus of left kidney Active Problem 10/01/2018 [facility] Tobacco use disorder Active Problem 10/01/2018 [facility] Left leg pain Active Problem 10/01/2018 [facility] Primary localized osteoarthrosis of right hip Active Problem 10/01/2018 [facility] Essential hypertension Active Problem 10/01/2018 [facility] Prepatellar bursitis of right knee Active Problem 10/01/2018 [facility] Benign prostatic hyperplasia with lower urinary tract symptoms Active Problem 10/01/2018 [facility] Coronary artery disease involving [place] coronary artery of [place] heart without angina pectoris Active Problem 10/01/2018 [facility] Other obstructive and reflux uropathy Active Problem 10/01/2018 [facility] Shortness of breath Active Problem 10/01/2018 [facility] Elbow pain, right Active Problem 10/01/2018 [facility] Right elbow pain Active Problem 10/01/2018 [facility] Elbow pain, left Active Problem 10/01/2018 [facility] Diarrhea, unspecified type Active Diagnosis 08/05/2018 [facility] Medications Medication Details Route Status Patient Instructions Ordering Provider Order Date Source Levocetirizine Dihydrochloride 1 tablet in the evening Orally Active 5 MG Orally Once a day Jarad 03/28/2019 [facility] Ergocalciferol 1 capsule Orally Active 48812 UNIT Orally once a week Jarad 09/30/2018 [facility] Klor-Con M20 1 tablet with food Orally Active 20 MEQ Orally Once a day Jarad 08/05/2018 [facility] Metronidazole 1 tablet Orally Active 500 mg Orally every 8 hrs Jarad 08/04/2018 [facility] Bentyl 1 tablet Orally Active 20 mg Orally three times a day (tid) as needed (prn) Jarad 08/04/2018 [facility] Ciprofloxacin HCl 1 tablet Orally Active 500 mg Orally every 12 hrs Jarad 08/04/2018 [facility] Naproxen 1 tablet with food or milk as needed Orally Active 500 mg Orally every 12 hrs as needed Jarad 05/28/2018 [facility] ProAir HFA 2 puffs as needed Inhalation Active 108 (90 Base) MCG/ACT Inhalation every 6 hrs as needed Jarad 04/30/2018 [facility] Naproxen 1 tablet with food or milk as needed Orally Active 500 mg Orally every 12 hrs Jarad 04/30/2018 [facility] Levocetirizine Dihydrochloride 1 tablet in the evening Orally Active 5 MG Orally Once a day Jarad 04/30/2018 [facility] Bromfed DM 10 ml as needed Orally Active 30-2-10 MG/5ML Orally every 6 hrs as needed Jarad 04/30/2018 [facility] Diclofenac Sodium 1 application to affected area Transdermal Active 3 % Transdermal Twice a day Jarad 04/30/2018 [facility] Fluticasone Propionate 1 spray in each nostril Nasally Active 50 MCG/ACT Nasally Once a day Jarad 04/30/2018 [facility] Meloxicam 1 tablet Orally Active 15 MG Orally Once a day Jarad 01/29/2018 [facility] Tamsulosin HCl 1 capsule Orally Active 0.4 MG Orally daily Jarad 10/13/2017 [facility] Finasteride 1 tablet Orally Active 5 MG Orally Once a day Jarad 10/13/2017 [facility] Meloxicam 1 tablet Orally Active 15 MG Orally Once a day Jarad 06/15/2017 [facility] Robaxin 1 tablet Orally Active 500 mg Orally three times a day (tid) as needed (prn) Jarad 05/16/2017 [facility] Ergocalciferol 1 capsule Orally Active 53112 UNIT Orally once a week Jarad 04/17/2017 [facility] Klor-Con 10 1 tablet with food Orally Active 10 MEQ Orally daily Jarad 01/15/2017 [facility] Atorvastatin Calcium 1 tablet Orally Active 10 MG Orally Once a day Jarad 01/13/2017 [facility] Ergocalciferol 1 capsule Orally Active 81731 UNIT Orally once a week Jarad 12/18/2016 [facility] Klor-Con M20 1 tablet with food Orally Active 20 MEQ Orally Once a day Jarad 12/18/2016 [facility] Amlodipine Besylate 1 tablet Orally Active 5 MG Orally Once a day Jarad 11/12/2016 [facility] Ciclopirox 1 drop to affected area Externally Active 8 % Externally Once a day Jarad 10/16/2016 [facility] Meloxicam 1 tablet Orally Active 15 MG Orally Once a day Jarad 09/12/2016 [facility] Diclofenac Sodium as directed Transdermal Active 1 % Transdermal Twice a day Jarad 09/12/2016 [facility] Levocetirizine Dihydrochloride 1 tablet in the evening Orally Active 5 MG Orally Once a day Jarad 09/12/2016 [facility] Ergocalciferol 1 capsule Orally Active 18533 UNIT Orally Once a week Jarad 05/23/2016 [facility] Amoxicillin-Pot Clavulanate as directed Orally Active 500-125 MG Orally every 12 hrs Jarad 05/22/2016 [facility] Benzonatate 1 capsule as needed Orally Active 100 MG Orally Three times a day as needed Jarad 05/22/2016 [facility] Levocetirizine Dihydrochloride 1 tablet in the evening Orally Active 5 MG Orally Once a day Jarad 05/22/2016 [facility] Fluticasone Propionate 1 spray in each nostril Nasally Active 50 MCG/ACT Nasally Once a day [facility] 05/22/2016 [facility] BuPROPion HCl (SR) 1 tablet Orally Active 150 MG Orally Twice a day [facility] 03/19/2016 [facility] Potassium Chloride 1 tablet with food Orally Active 10 MEQ Orally Twice a day [facility] 03/01/2016 [facility] Ergocalciferol 1 capsule Orally Active 46849 UNIT Orally Once a week [facility] 03/01/2016 [facility] BuPROPion HCl (SR) 1 tablet Orally Active 150 MG Orally Twice a day [facility] Robaxin 1 tablet Orally Active 500 MG Orally as needed (prn) [facility] Omeprazole 1 capsule Orally Active [address] [facility] Fluticasone Propionate 1 spray in each nostril Nasally Active 50 MCG/ACT Nasally Once a day [facility] Amlodipine Besylate 1 tablet Orally Active 10 MG Orally Once a day [facility] Finasteride 1 tablet Orally Active 5 MG Orally Once a day [facility] Ranitidine 1 tablet Oral Active 75 mg Oral twice a day (bid) [facility] Meloxicam 1 tablet Orally Active 15 MG Orally Once a day [facility] Levocetirizine Dihydrochloride 1 tablet in the evening Orally Active 5 MG Orally Once a day [facility] Lisinopril-Hydrochlorothiazide 2 tablet Orally Active 20-12.5 MG Orally Once a day [facility] Ciclopirox 1 drop to affected area Externally Active 8 % Externally Once a day [facility] Tamsulosin HCl 1 capsule Orally Active 0.[address] [facility] Lisinopril-Hydrochlorothiazide 2 tablet Orally Active 20-12.5 MG Orally Once a day [facility] Omeprazole 1 capsule Orally Active [address] [facility] Fluticasone Propionate 1 spray in each nostril Nasally Active 50 MCG/ACT Nasally Once a day [facility] Amlodipine Besylate TAKE 1 TABLET BY MOUTH ONCE A DAY NA Active 10 mg [facility] Atorvastatin Calcium 1 tablet Orally Active 10 MG Orally Once a day [facility] Finasteride 1 tablet Orally Active [address] [facility] Ranitidine 1 tablet Oral Active 75 mg Oral twice a day (bid) [facility] BuPROPion HCl (SR) TAKE 1 TABLET BY MOUTH TWICE A DAY NA Active 150 MG [facility] Klor-Con 10 1 tablet with food Orally Active 10 MEQ Orally daily [facility] Levocetirizine Dihydrochloride 1 tablet in the evening Orally Active 5 MG Orally Once a day [facility] Tamsulosin HCl 1 capsule Orally Active 0.4 MG Orally daily [facility] Amlodipine Besylate 1 tablet Orally Active 10 MG Orally Once a day [facility] Ciclopirox 1 drop to affected area Externally Active 8 % Externally Once a day [facility] Levocetirizine Dihydrochloride 1 tablet in the evening Orally Active 5 MG Orally Once a day [facility] Fluticasone Propionate 1 spray in each nostril Nasally Active 50 MCG/ACT Nasally Once a day [facility] BuPROPion HCl (SR) 1 tablet Orally Active 150 MG Orally Twice a day [facility] Clopidogrel Bisulfate 1 tablet Orally Active 75 MG Orally Once a day [facility] Aspirin 1 tablet Orally Active 325 MG Orally Once a day [facility] Ergocalciferol 1 capsule Orally Active 41774 UNIT Orally Once a week [facility] Brilinta 1 tablet Orally Active 90 MG Orally Twice a day [facility] Allergies, Adverse Reactions, Alerts Substance Category Reaction Severity Reaction type Status Date Reported Comments Source N.K.D.A. Adverse Reaction Info Not Available Adverse Reaction Active 09/29/2018 [facility] Immunizations Immunization Date Given Site Status Last Updated Comments Source Results Order Name Results Value Reference Range Date Interpretation Comments Source Vital Signs Vital Sign Value Date Comments Source Weight 148.8 09/29/2018 [facility] Height 66 09/29/2018 [facility] Temperature Oral (F) 98.4 F 09/29/2018 [facility] Heart Rate 58 09/29/2018 [facility] Diastolic (mm Hg) 78 09/29/2018 [facility] Systolic (mm Hg) 127 09/29/2018 [facility] Weight 155.0 08/04/2018 [facility] Height 66 08/04/2018 [facility] Temperature Oral (F) 97.5 F 08/04/2018 [facility] Heart Rate 87 08/04/2018 [facility] Diastolic (mm Hg) 75 08/04/2018 [facility] Systolic (mm Hg) 124 08/04/2018 [facility] Weight 149.5 05/28/2018 [facility] Height 66 05/28/2018 [facility] Temperature Oral (F) 98.0 F 05/28/2018 [facility] Heart Rate 64 05/28/2018 [facility] Diastolic (mm Hg) 71 05/28/2018 [facility] Systolic (mm Hg) 133 05/28/2018 [facility] Weight 147.1 04/30/2018 [facility] Height 66 04/30/2018 [facility] Temperature Oral (F) 97.7 F 04/30/2018 [facility] Heart Rate 56 04/30/2018 [facility] Diastolic (mm Hg) 76 04/30/2018 [facility] Systolic (mm Hg) 134 04/30/2018 [facility] Weight 147.3 01/29/2018 [facility] Height 66 01/29/2018 [facility] Temperature Oral (F) 98.0 F 01/29/2018 [facility] Heart Rate 70 01/29/2018 [facility] Diastolic (mm Hg) 77 01/29/2018 [facility] Systolic (mm Hg) 123 01/29/2018 [facility] Weight 149.1 04/16/2017 [facility] Height 66 04/16/2017 [facility] Temperature Oral (F) 98.3 F 04/16/2017 [facility] Heart Rate 74 04/16/2017 [facility] Diastolic (mm Hg) 78 04/16/2017 [facility] Systolic (mm Hg) 132 04/16/2017 [facility] Weight 144.8 01/13/2017 [facility] Height 66 01/13/2017 [facility] Temperature Oral (F) 98.1 F 01/13/2017 [facility] Heart Rate 77 01/13/2017 [facility] Diastolic (mm Hg) 68 01/13/2017 [facility] Systolic (mm Hg) 111 01/13/2017 [facility] Weight 144.9 12/12/2016 [facility] Height 66 12/12/2016 [facility] Temperature Oral (F) 97.3 F 12/12/2016 [facility] Heart Rate 84 12/12/2016 [facility] Diastolic (mm Hg) 88 12/12/2016 [facility] Systolic (mm Hg) 165 12/12/2016 [facility] Weight 148.4 11/12/2016 [facility] Height 66 11/12/2016 [facility] Heart Rate 60 11/12/2016 [facility] Diastolic (mm Hg) 80 11/12/2016 [facility] Systolic (mm Hg) 155 11/12/2016 [facility] Weight 147.8 10/16/2016 [facility] Height 66 10/16/2016 [facility] Temperature Oral (F) 98.6 F 10/16/2016 [facility] Heart Rate 69 10/16/2016 [facility] Diastolic (mm Hg) 79 10/16/2016 [facility] Systolic (mm Hg) 151 10/16/2016 [facility] Weight 145.8 09/12/2016 [facility] Height 66 09/12/2016 [facility] Temperature Oral (F) 98.5 F 09/12/2016 [facility] Heart Rate 67 09/12/2016 [facility] Diastolic (mm Hg) 84 09/12/2016 [facility] Systolic (mm Hg) 153 09/12/2016 [facility] Weight 147.5 08/12/2016 [facility] Height 66 08/12/2016 [facility] Temperature Oral (F) 97.9 F 08/12/2016 [facility] Heart Rate 71 08/12/2016 [facility] Diastolic (mm Hg) 85 08/12/2016 [facility] Systolic (mm Hg) 152 08/12/2016 [facility] Weight 139.6 05/22/2016 [facility] Height 66 05/22/2016 [facility] Temperature Oral (F) 98.3 F 05/22/2016 [facility] Heart Rate 73 05/22/2016 [facility] Diastolic (mm Hg) 75 05/22/2016 [facility] Systolic (mm Hg) 133 05/22/2016 [facility] Weight 141.8 04/19/2016 [facility] Height 66 04/19/2016 [facility] Temperature Oral (F) 98.1 F 04/19/2016 [facility] Heart Rate 61 04/19/2016 [facility] Diastolic (mm Hg) 79 04/19/2016 [facility] Systolic (mm Hg) 136 04/19/2016 [facility] Weight 143.1 03/19/2016 [facility] Height 66 03/19/2016 [facility] Temperature Oral (F) 97.9 F 03/19/2016 [facility] Heart Rate 57 03/19/2016 [facility] Diastolic (mm Hg) 77 03/19/2016 [facility] Systolic (mm Hg) 125 03/19/2016 [facility] Weight 141.1 02/27/2016 [facility] Height 66 02/27/2016 [facility] Temperature Oral (F) 98.2 F 02/27/2016 [facility] Heart Rate 54 02/27/2016 [facility] Diastolic (mm Hg) 74 02/27/2016 [facility] Systolic (mm Hg) 126 02/27/2016 [facility] Encounters Location Location Details Encounter Type Encounter Number Reason For Visit Attending Provider ADM Date DC Date Status Source [facility] Patient here for hospital follow up/abdominal pain [id number] 02/27/2016 02/27/2016 [facility] Patient here for hospital follow up/abdominal pain [id number] 02/27/2016 02/27/2016 [facility] Patient here for hospital follow up/abdominal pain [id number] 02/27/2016 02/27/2016 [facility] Care Patient here for hospital follow up/abdominal pain [id number] 02/27/2016 02/27/2016 [facility] Patient here for hospital follow up/abdominal pain [id number] 02/27/2016 02/27/2016 [facility] Patient here for hospital follow up/abdominal pain [id number] 02/27/2016 02/27/2016 [facility] Patient here for hospital follow up/abdominal pain [id number] 02/27/2016 02/27/2016 [facility] Patient here for hospital follow up/abdominal pain [id number] 02/27/2016 02/27/2016 [facility] Care Unknown [id number] 03/01/2016 03/01/2016 [facility] Care Unknown [id number] 03/01/2016 03/01/2016 [facility] Care Unknown [id number] 03/01/2016 03/01/2016 [facility] Care Unknown [id number] 03/01/2016 03/01/2016 [facility] Care Unknown [id number] 03/01/2016 03/01/2016 [facility] Care Unknown [id number] 03/01/2016 03/01/2016 [facility] Care Unknown [id number] 03/01/2016 03/01/2016 [facility] Patient here for follow up [id number] 03/19/2016 03/19/2016 [facility] Patient here for follow up [id number] 03/19/2016 03/19/2016 [facility] Patient here for follow up [id number] 03/19/2016 03/19/2016 [facility] Patient here for follow up [id number] 03/19/2016 03/19/2016 [facility] Patient here for follow up [id number] 03/19/2016 03/19/2016 [facility] Patient here for follow up [id number] 03/19/2016 03/19/2016 [facility] Care patient here to follow up on medication [id number] 04/19/2016 04/19/2016 [facility] Care patient here to follow up on medication [id number] 04/19/2016 04/19/2016 [facility] Care patient here to follow up on medication [id number] 04/19/2016 04/19/2016 [facility] Care patient here to follow up on medication [id number] 04/19/2016 04/19/2016 [facility] Care patient here to follow up on medication [id number] 04/19/2016 04/19/2016 [facility] Care patient here for follow up [id number] 05/22/2016 05/22/2016 [facility] Care patient here for follow up [id number] 05/22/2016 05/22/2016 [facility] Care patient here for follow up [id number] 05/22/2016 05/22/2016 [facility] Care patient here for follow up [id number] 05/22/2016 05/22/2016 [facility] Care Unknown [id number] 05/23/2016 05/23/2016 [facility] Care Unknown [id number] 05/23/2016 05/23/2016 [facility] Care Unknown [id number] 05/23/2016 05/23/2016 [facility] Care patient here for a follow up [id number] 08/12/2016 08/12/2016 [facility] Care patient here for a follow up [id number] 08/12/2016 08/12/2016 [facility] Care patient here for a follow up on blood pressure [id number] 09/12/2016 09/12/2016 [facility] Primary Procedures Procedure Code Date Perfomer Comments Source
--- OUTSIDE RECORDS SUMMARY | 2018-10-30 12:42 | XMS REPORT ---
Author Author Larisa Abraham [facility] eClinicalWorks Address Unknown Phone Unavailable Care Team Providers Care Worm Picker Name Role Phone Larisa Abraham CP Unavailable Allergies No Known Allergies Problems Problem Type Condition Code Onset Dates Condition Status Problem Hypertension I10 Active Problem Abdominal pain R10.9 Active Problem Hypokalemia E87.6 Active Problem GERD (gastroesophageal reflux disease) K21.9 Active Problem Hematuria R31.9 Active Problem Low vitamin D level E55.9 Active Problem Memory loss R41.3 Active Problem Umbilical hernia without obstruction and without gangrene K42.9 Active Problem Cough R05 Active Problem Acute pain of right shoulder M25.511 Active Problem Left leg pain M79.605 Active Problem Tobacco use disorder F17.200 Active Problem Acute non-recurrent frontal sinusitis J01.10 Active Problem Primary localized osteoarthrosis of right hip M16.11 Active Problem Essential hypertension I10 Active Problem Prepatellar bursitis of right knee M70.41 Active Problem Benign prostatic hyperplasia with lower urinary tract symptoms N40.1 Active Problem Coronary artery disease involving [place] coronary artery of [place] heart without angina pectoris I25.10 Active Problem Other chronic pain G89.29 Active Problem Pain in left shoulder M25.512 Active Problem 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 Active Problem Environmental allergies Z91.09 Active Problem Shortness of breath R06.02 Active Problem Elbow pain, right M25.521 Active Problem Right elbow pain M25.521 Active Problem Elbow pain, left M25.522 Active Problem Enlarged prostate with lower urinary tract symptoms N40.1 Active Problem Onychomycosis B35.1 Active Problem Tobacco use disorder Z72.0 Active Problem Generalized abdominal pain R10.84 Active Problem Left ear pain H92.02 Active Problem Wears hearing aid Z97.4 Active Problem Calculus of left kidney N20.0 Active Problem Fatty liver K76.0 Active Problem Degenerative joint disease of low back M47.9 Active Problem Atherosclerosis I70.90 Active Medications Medication Code System Code Instructions Start Date End Date Status Dosage Ergocalciferol [facility] [id number] UNIT Orally once a week September 30, 2018 December 29, 2018 Active 1 capsule Results No Known Results Summary Purpose eClinicalWorks Submission
--- OUTSIDE RECORDS SUMMARY | 2018-10-30 12:42 | XMS REPORT ---
Author Author Larisa Abraham [facility] eClinicalWorks Address Unknown Phone Unavailable Care Team Providers Care Taker Off Name Role Phone Larisa Abraham CP Unavailable Allergies, Adverse Reactions, Alerts Substance Reaction Event Type N.K.D.A. 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.10 Active Problem Hematuria R31.9 Active Assessment Benign prostatic hyperplasia with lower urinary tract symptoms N40.1 Active Problem Low vitamin D level E55.9 Active Assessment 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 Active Problem Memory loss R41.3 Active Problem Umbilical hernia without obstruction and without gangrene K42.9 Active Problem Cough R05 Active Problem Left leg pain M79.605 Active Problem Acute pain of right shoulder M25.511 Active Problem Tobacco use disorder F17.200 Active Problem Acute non-recurrent frontal sinusitis J01.10 Active Problem Primary localized osteoarthrosis of right hip M16.11 Active Problem Essential hypertension I10 Active Problem Prepatellar bursitis of right knee M70.41 Active Problem Benign prostatic hyperplasia with lower urinary tract symptoms N40.1 Active Problem Coronary artery disease involving [place] coronary artery of [place] heart without angina pectoris I25.10 Active Problem Other chronic pain G89.29 Active Problem Pain in left shoulder M25.512 Active Assessment GERD (gastroesophageal reflux disease) K21.9 Active Problem 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 Active Problem Environmental allergies Z91.09 Active Assessment Environmental allergies Z91.09 Active Problem Shortness of breath R06.02 Active Assessment Low vitamin D level E55.9 Active Problem Elbow pain, right M25.521 Active Assessment Atherosclerosis I70.90 Active Problem Right elbow pain M25.521 Active Assessment Fatty liver K76.0 Active Problem Elbow pain, left M25.522 Active Problem Enlarged prostate with lower urinary tract symptoms N40.1 Active Problem Onychomycosis B35.1 Active Problem Tobacco use disorder Z72.0 Active Problem Generalized abdominal pain R10.84 Active Assessment Generalized abdominal pain R10.84 Active Problem Left ear pain H92.02 Active Problem Wears hearing aid Z97.4 Active Assessment Hypertension I10 Active Problem Calculus of left kidney N20.0 Active Assessment Diarrhea, unspecified type R19.7 Active Problem Fatty liver K76.0 Active Problem Degenerative joint disease of low back M47.9 Active Problem Atherosclerosis I70.90 Active Medications Medication Code System Code Instructions Start Date End Date Status Dosage Omeprazole [facility] 12513883682 20 MG Orally daily Active 1 capsule Metronidazole [facility] 61450956458 500 mg Orally every 8 hrs Aug 04, 2018 Aug 09, 2018 Active 1 tablet Clopidogrel Bisulfate [facility] 41447285763 75 MG Orally Once a day Active 1 tablet ProAir HFA [facility] 28494394985 108 (90 Base) MCG/ACT Inhalation every 6 hrs as needed Apr 30, 2018 Active 2 puffs as needed Tamsulosin HCl [facility] [address]-16 0.4 MG Orally daily Active 1 capsule Bentyl [facility] [address]-70 20 mg Orally three times a day (tid) as needed (prn) Aug 04, 2018 Aug 14, 2018 Active 1 tablet Aspirin [facility] 69314706193 325 MG Orally Once a day Active 1 tablet Finasteride [facility] 99980579658 5 MG Orally daily Active 1 tablet Fluticasone Propionate [facility] 19256617331 50 MCG/ACT Nasally Once a day Active 1 spray in each nostril Atorvastatin Calcium [facility] 87379674307 10 MG Orally Once a day Active 1 tablet Ciprofloxacin HCl [facility] 78638888095 500 mg Orally every 12 hrs Aug 04, 2018 Aug 09, 2018 Active 1 tablet Levocetirizine Dihydrochloride [facility] 93173989163 5 MG Orally Once a day Active 1 tablet in the evening Amlodipine Besylate [facility] 91109004382 10 mg Active TAKE 1 TABLET BY MOUTH ONCE A DAY Ranitidine [facility] 74907005794 75 mg Oral twice a day (bid) Active 1 tablet Lisinopril-Hydrochlorothiazide [facility] 84729399634 20-12.5 MG Orally Once a day Active 2 tablet Amlodipine Besylate [facility] 65236032518 10 MG Orally Once a day Active 1 tablet Vital Signs Date/Time: Aug 04, 2018 BMI 25.01 Index Weight 155.0 lbs Height 66 in Temperature 97.5 F Cardiac Monitoring Heart Rate 87 /min Blood Pressure Diastolic 75 mm Hg Blood Pressure Systolic 124 mm Hg Results No Known Results Summary Purpose eClinicalWorks Submission
--- OUTSIDE RECORDS SUMMARY | 2018-10-30 12:42 | XMS REPORT ---
Author Author Larisa Abraham Organization eClinicalWorks Address Unknown Phone Unavailable Care Team Providers Care Saddle Lining Stitcher Name Role Phone Larisa Abraham CP Unavailable Allergies, Adverse Reactions, Alerts Substance Reaction Event Type N.K.D.A. Info Not Available Non Drug Allergy Problems Problem Type Condition Code Onset Dates Condition Status Problem Hypertension I10 Active Problem Abdominal pain R10.9 Active Problem Hypokalemia E87.6 Active Problem GERD (gastroesophageal reflux disease) K21.9 Active Problem Hematuria R31.9 Active Assessment Hypokalemia E87.6 Active Problem Low vitamin D level E55.9 Active Assessment Coronary artery disease involving [place] coronary artery of [place] heart without angina pectoris I25.10 Active Problem Memory loss R41.3 Active Problem [...] N40.1 Active Problem Coronary artery disease involving [place] coronary artery of [place] heart without angina pectoris I25.10 Active Problem Other chronic pain G89.29 Active Problem Pain in left shoulder M25.512 Active Assessment Low vitamin D level E55.9 Active Problem 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 Active Problem Environmental allergies Z91.09 Active Assessment Atherosclerosis I70.90 Active Problem Shortness of breath R06.02 Active Assessment Fatty liver K76.0 Active Problem Elbow pain, right M25.521 Active Assessment 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 Active Problem Right elbow pain M25.521 Active Assessment Benign prostatic hyperplasia with lower urinary tract symptoms N40.1 Active Problem Elbow pain, left M25.522 Active Problem Enlarged prostate with lower urinary tract symptoms N40.1 Active Problem Onychomycosis B35.1 Active Problem Tobacco use disorder Z72.0 Active Problem Generalized abdominal pain R10.84 Active Assessment Hypertension I10 Active Problem Left ear pain H92.02 Active Problem Wears hearing aid Z97.4 Active Assessment Environmental allergies Z91.09 Active Problem Calculus of left kidney N20.0 Active Assessment GERD (gastroesophageal reflux disease) K21.9 Active Problem Fatty liver K76.0 Active Problem Degenerative joint disease of low back M47.9 Active Problem Atherosclerosis I70.90 Active Medications Medication Code System Code Instructions Start Date End Date Status Dosage Finasteride [facility] 55509171244 5 MG Orally daily Active 1 tablet ProAir HFA [facility] 83739026381 108 (90 Base) MCG/ACT Inhalation every 6 hrs as needed Apr 30, 2018 Active 2 puffs as needed Atorvastatin Calcium [facility] 36979342485 10 MG Orally Once a day Active 1 tablet Aspirin [facility] 47749471543 325 MG Orally Once a day Active 1 tablet Ranitidine [facility] 70208856312 75 mg Oral twice a day (bid) Active 1 tablet Lisinopril-Hydrochlorothiazide [facility] 57953128582 20-12.5 MG Orally Once a day Active 2 tablet Amlodipine Besylate [facility] 09131131315 10 MG Orally Once a day Active 1 tablet Fluticasone Propionate [facility] 27694662998 50 MCG/ACT Nasally Once a day Active 1 spray in each nostril Clopidogrel Bisulfate [facility] 99204789996 75 MG Orally Once a day Active 1 tablet Brilinta [facility] 09709621991 90 MG Orally Twice a day Active 1 tablet Tamsulosin HCl [facility] [address]-60 0.4 MG Orally daily Active 1 capsule Omeprazole [facility] 63832170441 20 MG Orally daily Active 1 capsule Levocetirizine Dihydrochloride [facility] 26035333774 5 MG Orally Once a day Mar 28, 2019 Active 1 tablet in the evening Vital Signs Date/Time: September 29, 2018 BMI 24.01 Index Weight 148.8 lbs Height 66 in Temperature 98.4 F Cardiac Monitoring Heart Rate 58 /min Blood Pressure Diastolic 78 mm Hg Blood Pressure Systolic 127 mm Hg Results No Known Results Summary Purpose eClinicalWorks Submission
--- OUTSIDE RECORDS SUMMARY | 2018-10-30 12:42 | XMS REPORT ---
Author Author Larisa Abraham [facility] eClinicalWorks Address Unknown Phone Unavailable Care Team Providers Care Clipper Machine Operator Name Role Phone Larisa Abraham CP Unavailable [...] N40.1 Active Problem Coronary artery disease involving [place] coronary artery of [place] heart without angina pectoris I25.10 Active Problem [...] Instructions Start Date End Date Status Dosage Klor-Con M20 [facility] 30585641104 20 MEQ Orally Once a day Aug 05, 2018 Aug 12, 2018 Active 1 tablet with food Results No Known Results Summary Purpose eClinicalWorks Submission
[2018-10-30] MEDS ORDERED: MIDAZOLAM HCL 2 MG/2 ML VIAL ONE ×2 (13:38→14:08)
[2018-10-30] MEDS ORDERED: IOPAMIDOL 300MG/ML 100 ML INFUS..BTL IV ONE ×2 (13:39→14:22)
[2018-10-30] MEDS ORDERED: HEPARIN SOD/SOD CHLORIDE 2,000 ML ONE (13:39)
[2018-10-30] MEDS ORDERED: FENTANYL CITRATE/PF 100MCG/2 ML INJ ONE (13:39)
[2018-10-30] MEDS ORDERED: SODIUM CHLORIDE 0.9% 1000ML 1,000 ML ONE (13:39)
[2018-10-30] MEDS ORDERED: LIDOCAINE HCL 2% LOCAL 20 ML VIAL ONE (13:39)
[2018-10-30] MEDS ORDERED: SODIUM CHLORIDE 0.9% 1000ML 1,000 ML IV SCH (16:15)
[2018-10-30] MEDS ORDERED: MORPHINE SULFATE INJ 4 MG/ML INJ 1ML IV PRN (16:15)
[2018-10-30 16:28] VITALS: BP 117/62
[2018-10-30 16:30] VITALS: BP 117/62
[2018-10-30 19:12] VITALS: BP 117/62
[2018-10-30 19:43] VITALS: BP 111/63
--- NOTE | 2018-10-30 22:49 | Operative Report ---
DATE OF PROCEDURE: 10/30/2018 SURGEON: Francisco Phan MD REPORT TITLE: Cardiac Bias Machine Operator Procedure INDICATION: Peripheral arterial disease. PROCEDURES PERFORMED: 1. Abdominal aortogram with runoff to bilateral lower extremities. 2. Right iliac stent placement. COMPLICATIONS: None. RECOMMENDATIONS: Medical therapy. DESCRIPTION OF PROCEDURE: Access was obtained in the right femoral artery. Abdominal aortogram demonstrated 80% stenosis of the right external iliac artery, mild disease in other vessels. Three vessel runoff to both feet. A decision was made to intervene on the right iliac artery. The patient received heparin for anticoagulation. A single 10 mm x 60 mm LIFESTAR stent was deployed post hand with a 9 mm balloon. Excellent end result. Less than 10% residual stenosis. No complications. Right groin repaired using Vascade closure device. The patient was discharged home today. Francisco Phan MD KSB/MODL /[id number]
== END 2018-10-30 20:15 | disposition home or self-care (01) ==
LOC: CATH LAB 12:38 → CATH LAB V 15:12 → IMCU 15:55
PROVIDERS: ADMIT Internal Medicine Interventional Cardiology; ATTEND Internal Medicine Interventional Cardiology
DX: I73.9 Peripheral vascular disease, unspecified (principal); I25.118 Atherosclerotic heart disease of native coronary artery with other forms of angina pectoris; I10 Essential (primary) hypertension; M19.90 Unspecified osteoarthritis, unspecified site
CPT/HCPCS: 36415; 37221; 75630; 80053; 85025; C1725; C1760; C1769 ×2; C1876; G0378; J2001; J2250; J7030; Q9967

== ENCOUNTER → 2019-09-07 | Day surgery (SDC) | payer OTHER ==
[2019-09-01 12:21] LABS: BASOPHILS # (AUTO) 0.1 (0.0-0.1); EOSINOPHILS # (AUTO) 0.7 (0.0-0.4); HEMATOCRIT 45.7 % (38.2-49.6); HEMOGLOBIN 15.8 g/dL (14.0-18.0); LYMPHOCYTES # (AUTO) 2.8 (1.0-3.2); LYMPHOCYTES % 28.1 % (18.0-39.1); MEAN CORPUSCULAR HEMOGLOBIN 30.9 pg (28-32); MEAN CORPUSCULAR HGB CONC 34.6 g/dL (31-35); MEAN CORPUSCULAR VOLUME 89.3 fL (81-99); MONOCYTES # (AUTO) 0.8 (0.2-0.8); MONOCYTES % 7.7 % (4.4-11.3); NEUTROPHILS # (AUTO) 5.5 (2.1-6.9); NEUTROPHILS % 55.7 % (38.7-80.0); PLATELET COUNT 191 x10e3/uL (140-360); RED BLOOD COUNT 5.12 x10e6/uL (4.3-5.7); RED CELL DISTRIBUTION WIDTH 12.3 % (11.7-14.4)
[2019-09-01 12:40] LABS: ALANINE AMINOTRANSFERASE 15 IU/L (0-55); ALBUMIN 3.8 g/dL (3.5-5.0); ALBUMIN/GLOBULIN RATIO 1.4 (0.8-2.0); ALKALINE PHOSPHATASE 90 IU/L (40-150); ANION GAP 15.1 mmol/L (8-16); BLOOD UREA NITROGEN 25 mg/dL (7-26); BUN/CREATININE RATIO 29 (6-25); CALCIUM 9.1 mg/dL (8.4-10.2); CARBON DIOXIDE 24 mmol/L (22-29); CHLORIDE 108 mmol/L (98-107); CREATININE, SERUM 0.85 mg/dL (0.72-1.25); EST GLOMERULAR FILTRATION RATE > 60 ML/MIN (60-); GLUCOSE 111 mg/dL (74-118); POTASSIUM 4.1 mmol/L (3.5-5.1); SODIUM 143 mmol/L (136-145)
[2019-09-07] VITALS (9 sets, daily range): BP systolic 108–144; BP diastolic 64–77
[~2019-09-07] VITALS: Ht 165.1 cm; Wt 68.0 kg
[~2019-09-07] MED LIST changes: +ALPRAZOLAM 0.5 MG TAB ONE; +ASPIR 8181 MG PO; +DIPHENHYDRAMINE HCL 25 MG CAP ONE; +FENTANYL CITRATE/PF 100MCG/2 ML INJ ONE; +HEPARIN SOD/SOD CHLORIDE 2,000 ML ONE; +IOPAMIDOL 370 MG/ML 200 ML INFUS..BTL INJ ONE; +LIDOCAINE HCL 2% LOCAL 20 ML VIAL ONE; +MIDAZOLAM HCL 2 MG/2 ML VIAL ONE; +SODIUM CHLORIDE 0.9% 1000ML 1,000 ML ONE
--- OUTSIDE RECORDS SUMMARY | 2019-09-07 11:32 | XMS REPORT ---
Author Author [facility] Address Unknown Phone Unavailable Care Team Providers Care Study Abroad Coordinator Name Role Phone Unavailable Unavailable Problems This patient has no known problems. Allergies, Adverse Reactions, Alerts This patient has no known allergies or adverse reactions. Medications This patient has no known medications. Encounters Start Date/Time End Date/Time Encounter Type Admission Type Attending [facility] Care Facility Care Department Encounter ID 2018-12-02 08:27:00 2018-12-02 08:27:00 Outpatient [id number]
--- NOTE | 2019-09-07 13:23 | NUR ---
1323 pm RECEIVING NOTE [employer] REC[employer] DEPT............................................................... Bedside report received from Salomón FELIPE. Identifierx2. Alert oriented and appropriate, PERRLA, respirations even and unlabored to room air. Pulses x4 extremities equal and strong. Pedal pulses PT/DP X2 Cap fill brisk < 3 sec. TR band approach NO fix.Decrease air at 1430. Skin warm and dry integrity appears D/I IV 20g to left forearm, presents healthy w/o s/s of infiltration or complaint. Abdomen soft and supple. pt offered toileting, denies need to urinate or defecate. No personal affects with patient. Family at bedside. Currently w/o complaint of pain or need.ds/brooke
--- NOTE | 2019-09-07 13:43 | Operative Report ---
DATE OF PROCEDURE: 09/07/2019 SURGEON: Francisco Phan MD INDICATIONS: Coronary artery disease, abnormal stress test. PROCEDURES PERFORMED: 1. Left heart catheterization, selective coronary angiography. 2. Deployment of right wrist TR band. COMPLICATION: None. BLOOD LOSS: Minimal. RECOMMENDATIONS: Medical therapy. DESCRIPTION OF PROCEDURE: Access was obtained in the right radial artery. A 5-Welsh sheath was placed. Coronary angiography demonstrated patent stent in the obtuse marginal branch of the circumflex artery. Remaining vessels had [id number] diffuse 30% to 50% stenosis. No critical lesions were noted. No intervention deemed necessary. Right wrist TR band applied. The patient discharged home the same day. Francisco Phan MD KSB/MODL /[id number]
--- NOTE | 2019-09-07 14:30 | NUR ---
1430p RADIAL COMPRESSION REMOVAL NOTE: Initial Cuff volume 12 cc 1430p -2cc Removed No hematoma/bleeding noted with normal neurovascular function. 1445p -5cc Removed No hematoma/ bleeding noted with normal neurovascular function. 1500p -5cc Removed No hematoma/bleeding noted with normal neurovascular function. Air removal completed. Stasis achieved sterile 2x2,Tegaderm, Coban dressing No hematoma, bleeding noted with normal neurovascular function. Wrist splint in place. Pt instructed on POC. Ds/Rn
--- NOTE | 2019-09-07 15:15 | NUR ---
1515pm MASTIC SPRAYER RECOVERY DISCHARGE NURSING NOTE Pt meets DC criteria. rt TRband site assessed for s/s of complication and presence of hematoma. Skin warm, dry, no discolor, and pulses present. IV removed rt forearm. Distal tip appears intact. VS WNL. Pt denies pain, sob, or need at this time. Family at bedside. Review of discharge paperwork and follow up instructions. verbalized understanding. Pt to wheelchair and transported to front of hospital. Transferred to private vehicle under own strength w/o incident with DC paperwork in hand. ds/rn
== END | disposition home or self-care (01) ==
LOC: CATH LAB 11:26
PROVIDERS: ATTEND Internal Medicine Interventional Cardiology
DX: I25.118 Atherosclerotic heart disease of native coronary artery with other forms of angina pectoris (principal); R94.39 Abnormal result of other cardiovascular function study; I10 Essential (primary) hypertension; I73.9 Peripheral vascular disease, unspecified; Z95.5 Presence of coronary angioplasty implant and graft; Z82.49 Family history of ischemic heart disease and other diseases of the circulatory system
CPT/HCPCS: 36415; 80053; 85025; 93454; C1769; C1887; J2001; J2250; J3010; J7030; Q9967; 99152; 99153

== ENCOUNTER → 2024-06-29 | Outpatient (REF) | payer MEDICARE ==
[~2024-06-29] MED LIST changes: -ALPRAZOLAM 0.5 MG TAB ONE; -DIPHENHYDRAMINE HCL 25 MG CAP ONE; -FENTANYL CITRATE/PF 100MCG/2 ML INJ ONE; -HEPARIN SOD/SOD CHLORIDE 2,000 ML ONE; -IOPAMIDOL 370 MG/ML 200 ML INFUS..BTL INJ ONE; -LIDOCAINE HCL 2% LOCAL 20 ML VIAL ONE; -MIDAZOLAM HCL 2 MG/2 ML VIAL ONE; -SODIUM CHLORIDE 0.9% 1000ML 1,000 ML ONE
== END ==
LOC: DX 10:38
PROVIDERS: ATTEND Internal Medicine Critical Care Medicine
DX: R05.9 Cough, unspecified (principal); R13.13 Dysphagia, pharyngeal phase
CPT/HCPCS: 74230

== ENCOUNTER 2024-08-19 09:00 | Outpatient (RCR) | payer MEDICARE | END 2024-08-20 | LOC: ST 09:00 | PROVIDERS: ATTEND Internal Medicine Critical Care Medicine | DX: R13.13 Dysphagia, pharyngeal phase (principal) ==

== ENCOUNTER → 2024-09-10 | Outpatient (REF) | payer MEDICARE | LOC: DX 09:49 | PROVIDERS: ATTEND Internal Medicine Critical Care Medicine | DX: R13.13 Dysphagia, pharyngeal phase (principal) | CPT/HCPCS: 74230 ==

== ENCOUNTER → 2024-09-17 | Outpatient (RCR) | payer MEDICARE | LOC: ST 08-23 09:13 | PROVIDERS: ATTEND Internal Medicine Critical Care Medicine | DX: R13.13 Dysphagia, pharyngeal phase (principal) ==

== ENCOUNTER 2024-10-06 10:00 | Outpatient (RCR) | payer MEDICARE | END 2024-10-18 | LOC: ST 10:00 | PROVIDERS: ATTEND Internal Medicine Critical Care Medicine | DX: R13.13 Dysphagia, pharyngeal phase (principal) ==

== ENCOUNTER → 2024-10-12 | Outpatient (REF) | payer MEDICARE | LOC: DX 10:16 | PROVIDERS: ATTEND Internal Medicine Critical Care Medicine | DX: R13.13 Dysphagia, pharyngeal phase (principal) | CPT/HCPCS: 74230 ==